=== PATIENT | male | born 1970 | race Caucasian/White ===

== ENCOUNTER 2020-08-31 11:33 | Observation (INO) | payer SELFPAY ==
[~2020-08-31] VITALS: Ht 170.2 cm; Wt 80.7 kg
[2020-08-31] MEDS ORDERED: IOHEXOL 300 MG/ML 75 ML VIAL. IV ONE (12:00)
--- NOTE | 2020-08-31 12:28 | PHYS DOC ---
Past History Past Medical History: No Pertinent History Past Surgical History: No Surgical History Alcohol Use: Rarely Adult General Chief Complaint Chief Complaint: ABDOMINAL PAIN HPI HPI Patient is a 50M who denies any known past medical history now presenting to the emergency department for new onset of abdominal pain and swelling. Patient states that over the last week he has had worsening sensation of pain primarily in the left lower flank but also in the left upper quadrant. States that yesterday afternoon he is sneezed and felt a popping sensation in the lateral portion of the abdomen. Since that time is developed ecchymosis and bruising of the left lateral flank with moderate pain and tenderness in the area. Denies a ny associated nausea, vomiting, fever, chills, chest pain or shortness of breath. Denies any history of similar symptoms. Patient notes he has not seen a physician for many months Review of Systems Review of Systems Constitutional: Denies fever or chills [] Eyes: Denies change in visual acuity, redness, or eye pain [] HENT: Denies nasal congestion or sore throat [] Respiratory: Denies cough or shortness of breath [] Cardiovascular: No additional information not addressed in HPI [] GI: Denies abdominal pain, nausea, vomiting, bloody stools or diarrhea [] : Denies dysuria or hematuria [] Musculoskeletal: Denies back pain or joint pain [] Integument: Denies rash or skin lesions [] Neurologic: Denies headache, focal weakness or sensory changes [] Endocrine: Denies polyuria or polydipsia [] All other systems were reviewed and found to be within normal limits, except as documented in this note. Current Medications Current Medications Current Medications Medications (Trade) Dose Ordered Sig/Kathy Start Time Stop Time Status Last Admin Dose Admin Iohexol (Omnipaque 300 Mg/ml) 75 ml 1X ONCE 08/31/20 12:00 08/31/20 12:01 DC 08/31/20 12:19 75 ML Allergies Allergies Allergies Coded Allergies Type Severity Reaction Last Updated Verified No Known Drug Allergies 08/31/20 No Physical Exam Physical Exam Constitutional: Well developed, well nourished, no acute distress, non-toxic appearance. [] HENT: Normocephalic, atraumatic, bilateral external ears normal, oropharynx moist, no oral exudates, nose normal. [] Eyes: PERRLA, EOMI, conjunctiva normal, no discharge. [] Neck: Normal range of motion, no tenderness, supple, no stridor. [] Cardiovascular:Heart rate regular rhythm, no murmur [] Lungs & Thorax: Bilateral breath sounds clear to auscultation [] Abdomen: Bowel sounds normal, soft, no tenderness, no masses, no pulsatile masses. Small areas of swelling over the lateral obliques with descending ecchymosis Skin: Warm, dry, no erythema, no rash. [] Back: No tenderness, no CVA tenderness. [] Extremities: No tenderness, no cyanosis, no clubbing, ROM intact, no edema. [] Neurologic: Alert and oriented X 3, normal motor function, normal sensory function, no focal deficits noted. [] Psychologic: Affect normal, judgement normal, mood normal. [] Current Patient Data Vital Signs Vital Signs Date Time Temp Pulse Resp B/P (MAP) Pulse Ox O2 Delivery O2 Flow Rate FiO2 08/31/20 11:48 99.1 113 18 164/118 (133) 97 Room Air EKG EKG [] Radiology/Procedures Radiology/Procedures [] Heart Score Risk Factors: Risk Factors: DM, Current or recent (<one month) smoker, HTN, HLP, family history of CAD, obesity. Risk Scores: Risk Factors: DM, Current or recent (<one month) smoker, HTN, HLP, family history of CAD, obesity. Course & Med Decision Making Course & Med Decision Making Pertinent Labs and Imaging studies reviewed. (See chart for details) 50m presented with a posttraumatic swelling of the left anterior abdomen which raises concern for an acute hernia or rectus sheath hematoma. Will obtain labs and a CT scan of the abdomen with IV contrast. CT scan of the abdomen with IV contrast demonstrates what appears to be the left anterior rectus sheath hematoma without any evidence of active bleed. I discussed the case with Dr Naylor with this time agrees the patient can be admitted for observation with ice packs and serial abdominal exams in the case is unlikely to be surgical. Dragon Disclaimer Dragon Disclaimer This electronic medical record was generated, in whole or in part, using a voice recognition dictation system. Departure Departure: Impression: Primary Impression: Rectus sheath hematoma Disposition: ADMITTED INPT THIS HOSP Condition: GOOD Referrals: PCP,NO (PCP) SARA MASON MD Aug 31, 2020 12:28
[2020-08-31 12:29] LABS: BASO # 0.1 x10^3/uL (0.0-0.2); BASO % 1 % (0-3); EOS # 0.1 x10^3/uL (0.0-0.7); EOS % 2 % (0-3); HEMATOCRIT 41.7 % (39.0-53.0); LYMPH # 1.7 x10^3/uL (1.0-4.8); LYMPH % 20 % (24-48); MEAN CORPUSCULAR HEMOGLOBIN 35 pg (25-35); MEAN CORPUSCULAR HGB CONC 34 g/dL (31-37); MEAN CORPUSCULAR VOLUME 104 fL (79-100); MONO # 0.6 x10^3/uL (0.0-1.1); MONO % 7 % (0-9); NEUT % 70 % (31-73); PLATELET COUNT 247 x10^3/uL (140-400); RED BLOOD COUNT 4.01 x10^6/uL (4.30-5.70); RED CELL DISTRIBUTION WIDTH 14.6 % (11.5-14.5); WHITE BLOOD COUNT 8.6 x10^3/uL (4.0-11.0)
[2020-08-31 12:38] LABS: CALCIUM 8.7 mg/dL (8.5-10.1); CREATININE 1.1 mg/dL (0.7-1.3); GFR 71.4; POTASSIUM 4.1 mmol/L (3.5-5.1)
--- NOTE | 2020-08-31 12:42 | RAD ---
EXAM: CT Abdomen and Pelvis with IV contrast INDICATION: Reason: LLQ PAIN AND BRUSING. / Spl. Instructions: / History: TECHNIQUE: Multi-detector row CT images were acquired from the lung bases through the abdomen and pel vis with the use of IV contrast. Sagittal and coronal images were acquired from the transaxial data. All CT scans performed at this facility utilize dose optimization techniques as appropriate to the ex am, including the following: Automated exposure control and adjustment of the mA and/or KV according to patient size (this includes techniques or standardized protocols for targeted exams where dose is indication/reason for exam). IV CONTRAST: Administered ORAL CONTRAST: Not administered COMPARISON: None FINDINGS: LOWER CHEST: Unremarkable LIVER: Diffuse hepatic steatosis with scattered areas of focal sparing. BILIARY SYSTEM: Gallbladder is unremarkable. Bile ducts are not dilated. PANCREAS: Unremarkable SPLEEN: Unremarkable ADRENALS: Unremarkable KIDNEYS & URETERS: Unremarkable BLADDER: Collapsed with mild nonspecific diffuse bladder wall thickening noted. REPRODUCTIVE ORGANS: Unremarkable GASTROINTESTINAL: The stomach, small bowel, and colon are notable for scattered colonic diverticuli.. The appendix is normal. MESENTERY/PERITONEUM/RETROPERITONEUM: Unremarkable VASCULAR: Unremarkable LYMPH NODES: No adenopathy OSSEOUS & SOFT TISSUES: Acute hematoma in the left rectus abdominous muscle is present, associated w ith soft tissue stranding tracking down the subcutaneous soft tissues of the left lower quadrant vent ral abdominal wall. Hematoma within the left rectus muscle is approximately 3.4 cm thick by 6.9 cm wi de and 8.2 cm tall. IMPRESSION: 1. Left ventral abdominal wall rectus sheath hematoma. 2. Incidental hepatic steatosis, colonic diverticulosis, and nonspecific bladder wall thickening that could reflect cystitis in the appropriate clinical context. Electronically signed by: Naveen Buckner MD (08/31/2020 12:39 PM) [id number]
[2020-08-31 12:44] LABS: ALBUMIN 3.3 g/dL (3.4-5.0); ALBUMIN/GLOBULIN RATIO 0.8 (1.0-1.7); TOTAL BILIRUBIN 0.3 mg/dL (0.2-1.0); TOTAL PROTEIN 7.2 g/dL (6.4-8.2)
[2020-08-31 13:15] LABS: BACTERIA,URINE 0 /HPF (0-FEW); BILIRUBIN,URINE NEG (NEG); CLARITY,URINE CLEAR; COLOR,URINE YELLOW; GLUCOSE,URINE NEG (NEG); NITRITE,URINE NEG (NEG); RBC,URINE 0 /HPF (0-2); UROBILINOGEN,URINE 0.2 mg/dL (0.2 mg/dL); WBC,URINE 0 /HPF (0-4)
[2020-08-31] MEDS ORDERED: IV NORMAL SALINE 1,000ML 1,000 ML IV ONE (13:15)
[2020-08-31] MEDS ORDERED: methylPREDNISolone SOD SUCC PF 125 MG/2 ML VIAL. IV ONE (13:30)
[2020-08-31] MEDS ORDERED: IPRATRPIUM/ALBUTEROL 0.5/2.5MG 3 ML NEBU. NEB ONE (13:30)
--- NOTE | 2020-08-31 15:39 | NUR ---
NSG NOTE; ADMISSION ADMIT TO ROOM 117 AT 1505 VIA [facility]ART ACCOMP BY EMS PERSONNEL C/O LARGE HEMATOMA ON LEFT UPPER AND LOWER ABD. ADMITTED FOR OBSERVATION TO MAKE SURE BLEEDING DOES NOT CONTINUE. PT HAD LEFT UPPER QUADRANT AND FLANK PAIN X 7 DAYS, SNEEZED 3 DAYS AGO AND FELT A "POP" IN THE AREA WITH INCREASING PAIN. TODAY HE NOTICED THE LARGE HEMATOMA AND WAS SENT TO THE ED BY HIS PCM
[2020-08-31 15:40] VITALS: BP 184/122
[2020-08-31] MEDS ORDERED: NAPR220C4 PO (15:49)
[2020-08-31] MEDS ORDERED: oxyCODONE/APAP 10/325 1 TAB TABLET PO PRN (16:30)
[2020-08-31 17:43] VITALS: BP 173/101
[2020-08-31 19:38] VITALS: BP 191/109
[2020-08-31] MEDS ORDERED: ACETAMINOPHEN 500 MG TABLET PO PRN (19:45)
[2020-08-31] MEDS: ATENOLOL 50 MG TABLET PO SCH (20:23)
[2020-08-31 22:38] VITALS: BP 169/110
[2020-09-01 05:52] VITALS: BP 166/103
[2020-09-01 08:20] VITALS: BP 166/103
[2020-09-01] MEDS: ATENOLOL 50 MG TABLET PO SCH (08:20)
[2020-09-01 08:44] LABS: BASO # 0.1 x10^3/uL (0.0-0.2); BASO % 1 % (0-3); EOS # 0.2 x10^3/uL (0.0-0.7); EOS % 3 % (0-3); HEMATOCRIT 37.7 % (39.0-53.0); HEMOGLOBIN 12.8 g/dL (13.0-17.5); LYMPH # 1.8 x10^3/uL (1.0-4.8); LYMPH % 21 % (24-48); MEAN CORPUSCULAR HEMOGLOBIN 35 pg (25-35); MEAN CORPUSCULAR HGB CONC 34 g/dL (31-37); MEAN CORPUSCULAR VOLUME 104 fL (79-100); MONO # 0.7 x10^3/uL (0.0-1.1); MONO % 9 % (0-9); NEUT # 5.8 x10^3uL (1.8-7.7); NEUT % 67 % (31-73); PLATELET COUNT 217 x10^3/uL (140-400); RED BLOOD COUNT 3.64 x10^6/uL (4.30-5.70); RED CELL DISTRIBUTION WIDTH 14.2 % (11.5-14.5); WHITE BLOOD COUNT 8.7 x10^3/uL (4.0-11.0)
--- NOTE | 2020-09-01 10:12 | NUR ---
DISCHARGE-DR GEORGE HAS SEEN PATIENT THIS AM, ET INTENT IS TO DISCHARGE. PIV DC'D, PT IS NOT ON TELE. WRITTEN SCRIPT FOR ATENOLOL FOR DC, COPY MADE. ALL PERSONAL POSSESSIONS GATHERED, PT DRESSED FOR DC HOME.
[2020-09-01] MEDS ORDERED: ATEN100T PO (10:16)
--- NOTE | 2020-09-01 10:25 | DS ---
DATE OF DISCHARGE: 08/31/2020 ATTENDING PHYSICIAN: Dr. George. DATE OF ADMISSION: 08/31/2020 DATE OF DISCHARGE: 08/31/2020 FINAL DISCHARGE DIAGNOSES: 1. Spontaneous hematoma, left rectus sheath muscle. 2. Essential hypertension. 3. Huang Song sign. HISTORY AND PHYSICAL: This 50-year-old gentleman was taking Aleve. He had a heavy cough, sustaining a spontaneous hematoma and bleed in the left rectus muscle sheath. CT measurements are on the chart. He was admitted for observation. PHYSICAL EXAMINATION: Please see the dictated note. PERTINENT LABORATORY AND X-RAY STUDIES: Blood pressure was very labile on several occasions, and we got 190-160 mmHg. Room air sats were adequate. He was afebrile. Admission hemoglobin was 14.0 g/dL, white count 8600. MCV was 104. Repeat CBC, hemoglobin 12.8 gram. COURSE IN THE HOSPITAL: The patient was admitted. We gave him some Tenormin for his blood pressure. He had no symptoms. I examined him. He was stable for discharge. He was sent home the next hospital day, strong encouragement to avoid Aleve. I wrote a script for Tenormin 100 mg p.o. daily. The pain is manageable. He can get by without any medication. Hopefully, he will find a PCP and have a followup visit in the next several weeks regarding his blood pressure. I explained to him to the body's own fibrinolytic system will resorb the blood and the bruising will resolve. He was discharged then from our hospital in stable condition with explicit instructions and followup care. MARIANELA GEORGE MD DR: MIGUEL/jasbir JOB#: [id number] / [id number]
--- NOTE | 2020-09-01 11:27 | HP ---
ADMIT DATE: 08/31/2020 ATTENDING PHYSICIAN: Dr. Marianela George. CHIEF COMPLAINT: Bruising and abdominal pain. HISTORY OF PRESENT ILLNESS: The patient is a 50-year-old gentleman. 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 He has some back pain. He was taking a daily Aleve. He sneezed hard and heard a popping sensation in the lateral portion of the abdomen. Workup in the ED showed a moderate sized left rectus muscle sheath hematoma. There is a positive Huang-Song sign with a superficial ecchymosis. Blood counts are stable. No fevers. Pain is manageable. It is not too uncomfortable. No nausea or vomiting. He was admitted overnight for followup blood counts. Mainly, he states his is concerned that he was going to have further issues. PAST MEDICAL HISTORY: Unremarkable for any chronic illnesses. CURRENT MEDICATIONS: He is not on any prescription meds. He was taking [id number] Aleve. SOCIAL HISTORY: He is a nonsmoker, nondrinker. ALLERGIES: He has no known drug allergies. FAMILY HISTORY: Parents alive at age 67 and 68 respectively and healthy. He is . He has 2 children, ages 22 and 23. 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 REVIEW OF SYSTEMS: No trauma except for the cough. No travel, COVID exposure, fevers, chills, sweats, nausea, vomiting, hematemesis. All other systems reviewed and turned to be negative. PHYSICAL EXAMINATION: GENERAL: When I saw him, this is a pleasant young male. INITIAL VITAL SIGNS: Showed a blood pressure 166/100, pulse was 68 and regular. He was afebrile. Room air saturation 95%. HEENT: Head is without trauma. Pupils are reactive. Sclerae nonicteric. Oropharynx is clear. NECK: Supple, no bruits. LUNGS: Otherwise clear. CARDIOVASCULAR: Showed regular heart tones. No gallops. ABDOMEN: Soft. EXTREMITIES: Without edema. SKIN: There is bruising over the left lower quadrant. There is no palpable mass. PERTINENT LABORATORY STUDIES: Admission hemoglobin was 14.0 g/dL, white count 8600. Chemistry panel unremarkable. Transaminases are normal. CPK was 400. ASSESSMENT: 1. Spontaneous hemorrhage of the left rectus muscle sheath. The dimensions of the hematoma is identified. 2. Positive Huang-Song sign. 3. Essential hypertension. PLAN: 1. Admit to the observation status. 2. Follow up blood counts. 3. Diet as tolerated. MARIANELA GEORGE MD DR: MIGUEL/jasbir JOB#: [id number] / [id number]
== END 2020-09-01 10:34 | disposition home or self-care (01) ==
LOC: ER 11:33 → 1 SOUTH 14:30 → ER 14:55
PROVIDERS: ADMIT Hospitalist; ATTEND Hospitalist
DX: M79.81 Nontraumatic hematoma of soft tissue (principal); I10 Essential (primary) hypertension; K62.5 Hemorrhage of anus and rectum
CPT/HCPCS: 36415; 74177; 80053; 81001; 82550; 83690; 85025; 85610; 85730; 96360; 99285; G0378; J7030; Q9967; G0379